=== PATIENT | female | born 1945 | race Caucasian/White ===

== ENCOUNTER 2023-12-27 10:54 | Outpatient (AMB) | payer MEDICARE, SELFPAY ==
--- NOTE | 2023-12-27 11:03 | MHC.OFFVIS ---
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 She was referred to orthopedics by her PCP Dr Phuong Lundy. Patient expresses her right hand is worse than her left. She states all her fingers of her right hand except the pinky have numbness and tingling and are cold to touch. She has difficulty with gripping, grasping, and holding. She reports constant numbness and tingling that is the same throughout the day. She denies having an EMG and going OT. 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 She complains of numbness in her thumb, index, middle, and ring fingers bilaterally. She denies any small finger numbness. Symptoms constant throughout the day in her right hand, and intermittent in her left. She reports that she was having trouble with pain in her right hand, but says that she no longer has pain in her right hand. She complains of weakness and difficulty with gripping & grasping activities. She denies completing a NCS. [facility] Social History Alcohol intake: current Alcohol intake frequency: a few times a week Patient Tobacco Use Status: Never used Tobacco Current occupational status: retired Current occupation: right hand dominant Review of Systems Const All systems reviewed & are unremarkable except as noted in HPI and below Physical Exam Vital Signs: BMI result Body Mass Index 25.3 Const General: cooperative, healthy appearing and no acute distress Orientation/consciousness: patient oriented x3 HEENT Head: Yes normocephalic and Yes atraumatic Eyes EOM: EOMs intact bilaterally Resp Effort & Inspection: normal respiratory effort and able to speak in complete sentences Cardio Jugular venous distension: no JVD Skin General skin exam: turgor normal Rashes: no rashes Neuro General: patient oriented x3 Extrem Other: Evaluation of Bilateral Upper Extremity: The patient is alert, oriented, and in no acute distress Neuro: Decreased sensation in the left median nerve distribution. Dense numbness in the right median nerve distribution. Normal sensation in the ulnar nerve distribution bilaterally. Some thenar wasting on the right, no thenar wasting on the left No intinsic wasting bilaterally No APB muscle belly firing on the right Vascular: Cap refill brisk ROM: She can make a fist and extend all his digits Skin: No lacerations or abrasions. General: No Ecchymosis. No Erythema or evidence of infection. Psych Appearance: grossly normal Affect: normal affect Attitude: cooperative Assessment & Plan Assessment & Plan (1) Numbness and tingling in left hand: Code(s): R20.0 - Anesthesia of skin; R20.2 - Paresthesia of skin Category: Medical (2) Carpal tunnel syndrome of right wrist: Code(s): G56.01 - Carpal tunnel syndrome, right upper limb Category: Medical Plan Assessment & Plan: 1. 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 2. Left hand numbness In the median nerve distribution Some decreased subjective sensation in the median nerve distribution that worsens at night and during the day I educated her about carpal tunnel syndrome I ordered a NCS to assess for peripheral nerve compression She will follow up when completed for review. Scribed for Gianna Morales MD by Amadou Abad, director of medical staff services, on 12/27/23 at 11:25 AM, EST. Coding Level of Care Code New Pt Level 3 (43280) Diagnoses Numbness and tingling in left hand R20.0; R20.2 Carpal tunnel syndrome of right wrist G56.01
[2023-12-27 11:09] VITALS: BMI 25.3
== END 2023-12-27 11:33 | disposition home or self-care (01) ==
PROVIDERS: PCP Family Medicine; Visit Provider Orthopaedic Surgery
DX: R20.0 Anesthesia of skin (principal); R20.2 Paresthesia of skin; G56.01 Carpal tunnel syndrome, right upper limb
CPT/HCPCS: 99203

== ENCOUNTER → 2023-12-27 10:54 | Outpatient (BNVA) | payer MEDICARE, SELFPAY | PROVIDERS: PCP Family Medicine; Visit Provider Orthopaedic Surgery | DX: R20.0 Anesthesia of skin (principal); R20.2 Paresthesia of skin; G56.01 Carpal tunnel syndrome, right upper limb | CPT/HCPCS: 99202 ==